=== PATIENT | female | born 1945 | race Caucasian/White ===

== ENCOUNTER 2016-11-30 17:55 | Emergency (ER) | payer MEDICARE, OTHER, SELFPAY ==
[2016-11-30 15:48] LABS: BASOPHILS ABSOLUTE 0.03 10/3/uL (0.0-0.16); EOSINOPHILS 6.1 %; EOSINOPHILS ABSOLUTE 0.19 10/3/uL (0.0-0.53); ER CBC TAT 0 Hrs 03 Mins; HEMATOCRIT 34.9 % (36.0-48.0); HEMOGLOBIN 10.6 g/dL (12.0-16.0); IMMATURE GRANULOCYTES 0.3 %; IMMATURE GRANULOCYTES ABSOLUTE 0.01 10/3/uL (0.0-0.11); LYMPHOCYTES 31.1 %; LYMPHOCYTES ABSOLUTE 0.97 10/3/uL (0.67-4.30); MEAN CORPUS HGB CONC 30.4 g/dL (32.0-36.0); MEAN CORPUSCULAR HEMOGLOB 25.3 pg (26.0-34.0); MEAN CORPUSCULAR VOLUME 83.3 fL (80-100); MONOCYTES 15.4 %; MONOCYTES ABSOLUTE 0.48 10/3/uL (0.21-1.20); NEUTROPHILS 46.1 %; NEUTROPHILS ABSOLUTE 1.44 10/3/uL (2.02-8.40); RED CELL COUNT 4.19 10/6/uL (4.0-5.6); WHITE BLOOD CELLS 3.1 10/3/uL (4.5-10.5)
[2016-11-30 15:51] LABS: MANUAL DIFF NO %; PLATELET COUNT 100 10/3/uL (150-400); RBC DISTRIBUTION WIDTH 19.7 % (12.0-16.0)
[2016-11-30 15:52] LABS: ASCORBIC ACID (UR NOT ORDER) NEG (NEG); BILIRUBIN, URINE NEGATIVE (NEG); ER URINALYSIS TAT 0 Hrs 07 Mins; KETONE, URINE NEGATIVE (NEG); LEUKOCYTE ESTERASE(NOT OR NEG (NEG); NITRITE (URINE) NEG (NEG); WBC (NOT ORDERED) (RFLEX) 2 (0-5)
[2016-11-30 16:05] LABS: A/G RATIO 0.8 (0.7-1.9); ALKALINE PHOSPHATASE 54 U/L (45-117); BUN (BLOOD UREA NITROGEN) 5 MG/DL (6-23); CALCIUM, SERUM 7.9 MG/DL (8.5-10.4); CHLORIDE, SERUM 112 MMOL/L (96-112); CO2 (CARBON DIOXIDE) 28 MMOL/L (24-34); CREATININE 0.55 MG/DL (0.55-1.02); GFR AFRICAN AMERICAN 109 ML/MIN (>=60); GFR NON AFRICAN AMERICAN 94 ML/MIN (>=60); GLOBULIN 3.6 G/DL (2.5-4.1); GLUCOSE, SERUM 116 MG/DL (60-99); POTASSIUM, SERUM 3.7 MMOL/L (3.5-5.3); SGOT(AST) 12 U/L (5-40); SGPT(ALT) 30 U/L (5-65); SODIUM, SERUM 147 MMOL/L (135-148); TOTAL BILIRUBIN 0.5 MG/DL (0-1.2); TOTAL PROTEIN 6.6 G/DL (6.0-8.5)
[2016-11-30 17:10] LABS: INFLUENZA A SCREEN NEGATIVE (NEGATIVE); INFLUENZA B SCREEN NEGATIVE (NEGATIVE)
[~2016-11-30 17:55] MED LIST: ACET500CAP PO; ARIMIDEX1 PO; FERROUS SULF325 M1 PO; T PO
[2017-04-07] MEDS ORDERED: DEXA5B PO (10:54)
[2017-04-07] MEDS ORDERED: MULTI VITS PO (10:55)
[2017-04-07] MEDS ORDERED: [UNRECOGNIZED DRUG - REMARK] PO (11:07)
== END 2016-11-30 19:10 | disposition home or self-care (01) ==
LOC: ER 17:55
PROVIDERS: Emergency Medicine; Nurse Practitioner Family
DX: D61.818 Other pancytopenia (principal); D50.9 Iron deficiency anemia, unspecified; B34.9 Viral infection, unspecified; Z88.5 Allergy status to narcotic agent; Z79.899 Other long term (current) drug therapy
CPT/HCPCS: 71020; 80053; 81001; 83690; 85025; 87070; 87804; 87880; 93005; 99285; A9270-GY